=== PATIENT | male | born 1975 | race Hispanic/Latino ===

== ENCOUNTER 2020-10-16 10:45 | Observation (INO) | payer BC ==
[2020-10-16] MEDS ORDERED: Fentanyl 100 MCG/2 ML VIAL ONE ×2 (12:06→14:07)
[2020-10-16 13:04] LABS: #Monocytes 0.6 10x3/uL (0.0-1.1); #Neutrophils 6.8 10x3/uL (1.5-8.4); %Basophils 0.2 % (0.0-2.0); %Lymphocytes 16.6 % (18.0-47.0); %Monocytes 6.3 % (0.0-10.0); %Neutrophils 76.5 % (40.0-75.0); ALT (SGPT) 31 U/L (8-55); AST (SGOT) 25 U/L (5-34); Albumin 4.1 g/dL (3.5-5.0); Alkaline Phosphatase 93 U/L (40-110); Anion Gap 12 mmol/L (10-20); BUN (Urea Nitrogen) 10 mg/dL (8.9-20.6); Bilirubin, Total 1.2 mg/dL (0.2-1.2); Calc. Creatinine Clearance 0 mL/min (70-130); Calcium 8.7 mg/dL (7.8-10.44); Carbon Dioxide 27 mmol/L (22-29); Chloride 102 mmol/L (98-107); Globulin 3.2 g/dL (2.4-3.5); Glucose 102 mg/dL (70-105); Hemoglobin 15.3 g/dL (13.5-17.5); Mean Corpuscular HGB CONC 33.2 g/dL (32.0-36.0); Mean Corpuscular Hemoglobin 30.6 pg (27.0-33.0); Mean Corpuscular Volume 92.2 fl (81.2-95.1); Mean Platelet Volume 9.3 fl (7.4-10.4); Platelet Count 356 10x3/uL (150-450); Potassium 4.1 mmol/L (3.5-5.1); Protein, Total 7.3 g/dL (6.0-8.3); RBC Distribution Width 12.7 % (11.5-14.5); Sodium 137 mmol/L (136-145); White Blood Cell (WBC) Count 8.9 10x3/uL (3.5-10.5)
[2020-10-16] MEDS ORDERED: Ketorolac Tromethamine 30 MG/ML VIAL ONE (13:32)
[2020-10-16] MEDS ORDERED: Diazepam 10 MG/2 ML SYRINGE ONE (13:33)
[2020-10-16] MEDS ORDERED: Senokot S 8.6-50 MG TAB PO PRN (15:22)
[2020-10-16] MEDS ORDERED: Ondansetron PF 4 MG/2 ML Vial IVP PRN (15:22)
[2020-10-16] MEDS ORDERED: Ibuprofen 600 MG TAB PO PRN (15:23)
[2020-10-16] MEDS ORDERED: Cyclobenzaprine 10 MG TAB PO SCH (15:30)
[2020-10-16 19:28] VITALS: BMI 60.4
[2020-10-16] MEDS ORDERED: Dexamethasone 20 MG/5 ML VIAL SLOW IVP SCH (19:45)
[2020-10-16] MEDS: Acetaminophen 500 MG TAB PO SCH (21:55)
[2020-10-17 01:14] LABS: SARS-CoV-2 PCR by NAA Not Detected (NotDetected)
[2020-10-17] MEDS: Acetaminophen 500 MG TAB PO SCH ×3 (05:46→22:21)
[2020-10-17 06:16] LABS: #Eosinphils 0.1 10x3/uL (0.0-0.5); #Monocytes 0.6 10x3/uL (0.0-1.1); #Neutrophils 3.9 10x3/uL (1.5-8.4); %Basophils 0.2 % (0.0-2.0); %Eosinophils 1.2 % (0.0-6.0); %Lymphocytes 24.1 % (18.0-47.0); %Monocytes 9.3 % (0.0-10.0); Hemoglobin 15.9 g/dL (13.5-17.5); Mean Corpuscular HGB CONC 33.8 g/dL (32.0-36.0); Mean Corpuscular Hemoglobin 31.2 pg (27.0-33.0); Mean Corpuscular Volume 92.2 fl (81.2-95.1); Mean Platelet Volume 9.2 fl (7.4-10.4); Platelet Count 357 10x3/uL (150-450); RBC Distribution Width 12.6 % (11.5-14.5); White Blood Cell (WBC) Count 6.1 10x3/uL (3.5-10.5)
[2020-10-17 06:27] LABS: Anion Gap 13 mmol/L (10-20); BUN (Urea Nitrogen) 12 mg/dL (8.9-20.6); Calc. Creatinine Clearance 206 mL/min (70-130); Carbon Dioxide 27 mmol/L (22-29); Chloride 105 mmol/L (98-107); Glucose 98 mg/dL (70-105); Potassium 3.9 mmol/L (3.5-5.1); Sodium 141 mmol/L (136-145)
[2020-10-17] MEDS: Enoxaparin Sodium 40 MG/0.4 ML SYRINGE SC SCH (08:21)
[2020-10-17] MEDS ORDERED: Dexamethasone 20 MG/5 ML VIAL SLOW IVP SCH (10:00)
[2020-10-17] MEDS: Cyclobenzaprine 10 MG TAB PO PRN (13:10)
[2020-10-18] MEDS: Acetaminophen 500 MG TAB PO SCH ×2 (05:53→14:33)
[2020-10-18] MEDS: Cyclobenzaprine 10 MG TAB PO PRN (08:32)
[2020-10-18] MEDS: Enoxaparin Sodium 40 MG/0.4 ML SYRINGE SC SCH (08:32)
[2020-10-18 12:56] VITALS: TEMP 98.3
[2020-10-18 13:38] VITALS: BP 106/69
[2020-10-18] MEDS ORDERED: Dexamethasone 10 MG in Sodium Chloride 0.9% 50 ML IVPB SCH (14:00)
[2020-10-18] MEDS ORDERED: Cyclobenzaprine 10 MG TAB PO SCH (15:00)
== END 2020-10-18 15:55 | disposition home or self-care (01) ==
LOC: CSHERS 10:45 → CSHTELE 18:20
PROVIDERS: ADMIT Internal Medicine; ATTEND Internal Medicine
DX: M54.5 Low back pain (principal); Z20.822 Contact with and (suspected) exposure to COVID-19
CPT/HCPCS: 36415; 74177; 80048; 80053; 85025; 87635; 96372; 96374; 96375; 96376; G0378; J1100; J1650; J1885; J3010; J3360; U0003; U0005